=== PATIENT | female | born 1995 | race African-American/Black ===

== ENCOUNTER 2021-11-09 12:58 | Emergency (ER) | payer MEDICAID ==
[~2021-11-09] VITALS: Ht 160 cm; Wt 76.0 kg
[2021-11-09 15:45] VITALS: BP 108/65
[2021-11-09] MEDS ORDERED: KETOROLAC 30MG/ML VIAL IM ONE (15:45)
[2021-11-09] MEDS ORDERED: NAPR-1176 MT (16:56)
[2021-11-09] MEDS ORDERED: CYCL10TA21 MT (16:56)
== END 2021-11-09 17:07 | disposition home or self-care (01) ==
LOC: ER 12:58
DX: S16.1XXA Strain of muscle, fascia and tendon at neck level, initial encounter (principal); V44.5XXA Car driver injured in collision with heavy transport vehicle or bus in traffic accident, initial encounter; Y93.89 Activity, other specified; Y92.488 Other paved roadways as the place of occurrence of the external cause
CPT/HCPCS: 72125; 96372; 99284; J1885